=== PATIENT | male | born 1970 | race Caucasian/White ===

== ENCOUNTER 2019-03-07 20:29 | Emergency (ER) | payer SELFPAY ==
[2019-03-07 20:30] VITALS: BP 158/84; PULSE 70; RESP 16; TEMP 36.5; O2SAT 98; BMI 30.7
--- NOTE | 2019-03-07 20:40 | RAD_ITS ---
STUDY: X-RAY CHEST REASON FOR EXAM: Male, 48 years old. Cough. Shortness of breath TECHNIQUE: Frontal and lateral views of the chest. COMPARISON: None. FINDINGS: The lungs are clear and expanded. There is no demonstrated pleural abnormality. Normal size heart. Normal mediastinum and frances. Normal visualized pulmonary arteries. Normal visualized aortic arch and descending thoracic aorta. Normal visualized thoracic spine. Normal visualized ribs, clavicles, and shoulders. There is no demonstrated abnormality of the visualized soft tissue structures of the upper abdomen. RAD/Chest PA and Lateral IMPRESSION: Normal x-ray examination of the chest. Electronically Signed: Emil Peter MD at 20:58 EDT , Service support ,
--- NOTE | 2019-03-07 21:07 | ED.VISSUMM ---
- ER Visit Summary Date of Service: 03/07/19 Chief Complaint: Cough History of Present Illness: The patient is a 48 M with no primary care physician. Reports his cough began 5 days ago. Is productive of clear sputum without blood. He said chills, but no fever. He has nasal congestion. No sore throat. No shortness of breath or chest pain. Reports that his headache is 4-10 severity. He does have a history of similar headaches. Physical Examination: Vitals: Stable. Afebrile. General: Well-nourished and well-developed. Head: Normocephalic atraumatic. Neck: Supple, no lymphadenopathy. No JVD. Nontender. Cardiovascular: Regular rate and rhythm. No murmurs. Respiratory: No respiratory distress. Clear to auscultation bilaterally. Abdominal: Soft, nontender, nondistended, normal bowel sounds. No guarding, rebound, or peritoneal signs. Back: Nontender. Extremities: Nontender, no edema. Skin: Normal color, no rash. Neurologic: Alert and oriented ?3. Cranial nerves II through XII are intact. Normal strength and sensation. Psych: Normal affect. Test Results: Chest x-ray is normal Emergency Department Course and Treatment: Patient is resting comfortably. Treatment Plan: Patient be discharged symptomatic care. Instructed to push fluids. Use Tylenol and/or ibuprofen for pain. Follow-up Dr. Conrad Lemons iii in 1 week if not improving. Disposition: To home in improved and stable condition. Impression: 1. URI. This note was generated with [employer] dictation software. It may contain incorrect words, spelling, and punctuation that were not noted in review of the chart prior to signing ED Disposition - Plan for ED Patient: Disposition: Home or Assisted Living Instructions: ED Upper Resp Infec No Abx Tx Referrals: Conrad Lemons III, MD [STAFF PHYSICIAN] - 1 Week
[2019-03-07 21:18] VITALS: RESP 16
== END 2019-03-07 21:19 | disposition home or self-care (01) ==
PROVIDERS: Emergency Provider Emergency Medicine
DX: J06.9 Acute upper respiratory infection, unspecified (principal)
CPT/HCPCS: 71046; 99282

== ENCOUNTER 2020-01-29 07:07 | Emergency (ER) | payer SELFPAY ==
[2020-01-29 07:08] VITALS: BP 202/108; PULSE 108; RESP 18; TEMP 36.9; O2SAT 99; BMI 29.6
--- NOTE | 2020-01-29 07:23 | RAD_ITS ---
STUDY: X-RAY CHEST REASON FOR EXAM: Male, 49 years old. PRODUCTIVE COUGH X 2 WEEKS TECHNIQUE: PA and lateral views of the chest. COMPARISON: Comparison is made with prior examination dated March 07, 2019. FINDINGS: EKG electrodes are seen. The lungs are clear and expanded. There is no demonstrated pleural abnormality. Normal size heart. Normal mediastinum and frances. Normal visualized pulmonary arteries. Normal visualized aortic arch and descending thoracic aorta. There are mild degenerative changes of the visualized thoracic spine. Normal visualized ribs, clavicles, and shoulders. There is no demonstrated abnormality of the visualized soft tissue structures of the upper abdomen. RAD/Chest PA and Lateral IMPRESSION: Normal x-ray examination of the chest. Electronically Signed: González Duenas, at 8:17 EDT , Service support ,
--- NOTE | 2020-01-29 07:23 | EKG12_ITS ---
Test Reason : HTN Blood Pressure : / mmHG Vent. Rate : 081 BPM Atrial Rate : 081 BPM P-R Int : 138 ms QRS Dur : 084 ms QT Int : 376 ms P-R-T Axes : 052 010 038 degrees QTc Int : 436 ms Normal sinus rhythm Normal ECG Confirmed by ROS HYATT MD ([id number]), telegraph editor JOSE F RODRIGUEZ ([id number]) on 02/01/2020 9:05:40 AM Referred By: GAVINO Confirmed By:ROS HYATT MD
--- NOTE | 2020-01-29 07:24 | ED.VIS.GEN ---
History of Present Illness Chief Complaint: Cough Informant: Patient, Significant Other Onset: Weeks - Onset of respiratory symptoms 2 weeks ago Context: Sudden Onset Timing: Continuous Quality: Cough and respiratory symptoms Location: Respiratory Current Severity: Mild Maximum Severity: Mild Worsened by: Nothing Relieved by: Nothing Associated Symptoms: No other symptoms Narrative: Patient is a 49-year-old male who is a non-smoker and has not seen a physician in 19 years presents with cough productive of clear sputum. Significant other states that he had similar presentation many years ago and was diagnosed with pneumonia. He denies fever, chills night sweats. He denies rhinorrhea, congestion postnasal drainage. He denies ear pain, decreased hearing or drainage from his ears. He denies sore throat. He denies pleuritic chest pain. He denies dyspnea. He denies dyspnea on exertion. He denies urinary symptoms. Apparently, when he has had his blood pressure checked in the past he has been told it is elevated. He denies pedal edema. He denies orthopnea or PND. Prior similar symptoms: Yes Recent Illness/Hospitalization: No - Past Medical History (1) No significant past medical history Status: Acute Past Medical History - Allergies and Home Meds Allergies/Adverse Reactions: Allergies acetaminophen [From Vicodin] Allergy (Verified 03/07/19 20:31) ANGER hydrocodone [From Vicodin] Allergy (Verified 03/07/19 20:31) ANGER Primary Care Physician: Care Physician,No Primary [Primary Care Provider] - Prior records reviewed: No Past Medical History: None Surgical History: no surgical history Lives: Spouse/ Significant Other Smoking Status: Never smoker Alcohol: None Drugs: None Review of Systems General: Denies: Chills, Fever, Malaise, Sweats ENT: Denies: Bilateral ear pain, Rhinorrhea, Sore throat Cardiovascular: Denies: Chest pain, Palpitations, Heart racing Respiratory: Reports: Cough, Sputum. Denies: Dyspnea, Dyspnea on exertion, Orthopnea, Paroxysmal nocturnal dyspnea Gastrointestinal: Denies: Abdominal pain, Nausea, Vomiting, Diarrhea, Melena, Hematochezia Musculoskeletal: Denies: Myalgias, Arthralgias, Neck pain, Back pain, Swelling, Extremity Pain, -, - Skin: Denies: Rash, Wounds Neurological: Denies: Headache, Weakness, Numbness Hematologic: Denies: Easy bruising, Easy bleeding Allergy: Denies: Uticaria, Swelling of the mouth Physical Exam Vital Signs/Narrative: Vital Signs Temp Pulse Resp BP Pulse Ox 01/29/20 07:08 98.5 F 108 H 18 202/108 H 99 Inital Vital Signs reviewed: Yes General: Well nourished, Well developed, No Acute Distress Head: Normocephalic, Atraumatic Eyes: Perrl, EOMI ENT: Moist mucous membranes, No rhinorrhea Neck: Supple, Nontender Cardiovascular: Regular rhythm, No murmurs, Normal S1, Normal S2, Tachycardia Respiratory: No distress, Chest nontender, - - Adventitial breath sounds right lower lobe posteriorly. Negative for: CTA bilaterally Abdomen: Soft, Nontender, Nondistended, Normal bowel sounds Back: Nontender, Normal Inspection Extremities: Nontender, Edema - 2 mm pitting. Negative for: No edema Skin: Normal color, No rash. Negative for: Cyanosis, Diaphoresis, Jaundice, No Trauma Neurological: Alert, Oriented x3, Cranial nerves II-XII grossly intact, Normal Strength, Normal Sensation Psychological: Normal affect, Normal Mood Diagnostic/Tx/Re-eval Chest X-Ray - ED: 2 View, Read by ED Physician, Normal, Heart, Lungs, Mediastinum, Bony Structures, No Acute Disease, - - 2 view chest x-ray is interpreted by me. It is unchanged when compared to chest x-ray that was obtained March 07, 2019. Impressions Chest X-Ray 01/29/20 07:23 IMPRESSION: Normal x-ray examination of the chest. Electronically Signed: González Duenas, at 8:17 EDT , Service support , 01/29/20 07:23 Chest PA and Lateral [RAD] Stat Laboratory Results 01/29/20 01/29/20 01/29/20 07:30 07:40 07:45 WBC 6.7 RBC 5.11 Hgb 14.3 Hct 44.1 MCV 86.3 MCH 28.0 MCHC 32.4 RDW Std Deviation 39.8 RDW Coeff of Vahe 12.6 Plt Count 329 MPV 9.6 Immature Gran % (Auto) 0.300 Neut % (Auto) 62.9 Lymph % (Auto) 16.6 L [place] % (Auto) 12.1 H Eos % (Auto) 7.2 H Baso % (Auto) 0.9 Absolute Neuts (auto) 4.2 Absolute Lymphs (auto) 1.11 Nucleated RBC % 0 Sodium 139 Potassium 3.5 Chloride 104 Carbon Dioxide 30.0 Anion Gap 5 BUN 12 Creatinine 1.01 Estim Creat Clear Calc 86.53 Est GFR (MDRD) Af Amer 101 Est GFR (MDRD) Non-Af 84 BUN/Creatinine Ratio 11.9 Glucose 101 Calcium 8.9 Urine Color Yellow Urine Clarity Clear Urine pH 7.0 Ur Specific [place] 1.010 Urine Protein Negative Urine Glucose (UA) Normal Urine Ketones Negative Urine Occult Blood 10 H Urine Nitrite Negative Urine Bilirubin Negative Urine Urobilinogen Normal Ur Leukocyte Esterase Negative - EKG Initial EKG Interpretation: Sinus Rhythm - Sinus rhythm with ventricular rate of 81. [place] interval 238 ms. QRS duration 84 ms. QT duration 376 ms. [place] is normal. T waves are slightly peaked. This may represent hyperkalemia. Otherwise the EKG is normal - Medical Decision Making With history of productive cough for 2 weeks will obtain chest x-ray to assess for pneumonia especially since there are abnormal breath sounds on right only. Will obtain lab work to assess for endorgan injury since his blood pressure is significantly elevated at 202/108 and according to significant other he has had elevated blood pressures for some time. Patient's blood pressure readings remain elevated. Will start on lisinopril. He was referred to Dr. Keller since he does not have a primary care physician. Since white count is normal, chest x-ray is normal he has a upper respiratory infection and antibiotics were not prescribed. ED Disposition - Plan for ED Patient: Disposition: Home or Assisted Living Diagnosis: Hypertension, Upper respiratory infection with cough and congestion Instructions: BRONCHITIS, No Antibiotic (Adult), HYPERTENSION, New (Begin Treatment) Prescriptions: Lisinopril [Prinivil] 10 mg PO DAILY #30 tab Prescription Printed Referrals: Care Physician,No Primary [Primary Care Provider] - Sheila Giles MD [STAFF PHYSICIAN] - 1-2 Weeks
[2020-01-29 07:42] LABS: Color, Urine Yellow (Yellow); Glucose, Dipstick Normal (Normal); Ketone-Dipstick Negative (Negative); Leukocyte Esterase-Dipstick Negative /ul (Negative); Nitrite-Dipstick Negative (Negative); Occult Blood-Urine 10 /ul (Negative); Protein-Dipstick Negative (Negative); Urine Bilirubin Dipstick Negative (Negative); Urine Clarity Clear (Clear); Urine Urobilinogen Normal (Normal)
[2020-01-29 07:43] VITALS: BP 209/108; PULSE 88; RESP 20; O2SAT 98
[2020-01-29 08:01] LABS: Absolute Lymphocyte Count 1.11 X10^3/uL (0.83-4.51); Absolute Neutrophil Count 4.2 X10^3/uL (2.0-7.7); Basophil# 0.06 X10^3/uL; Basophil% 0.9 % (0-1); Eosinophil# 0.48 X10^3/uL; Eosinophils% 7.2 % (0-5); Hematocrit 44.1 % (40-54); Hemoglobin 14.3 g/dL (13.0-16.5); Lymphocyte # 1.11 X10^3/ul (4.0); Lymphocyte % 16.6 % (19-41); Mean Corp Hgb Conc 32.4 g/dL (32-36); Mean Corpuscular Volume 86.3 fL (80-94); Mean Platelet Vol. 9.6 fl (6.2-12.0); Monocyte# 0.81 X10^3/uL; Monocyte% 12.1 % (0-10); NRBC Flagged by Analyzer 0 % (0-5); Neutrophil # 4.21 X10^3/uL (2.7-7.7); Neutrophil % 62.9 % (47-70); Platelet Count 329 K/mm3 (150-450); RBC Distribution Width CV 12.6 % (11.6-14.6); RBC Distribution Width SD 39.8 fl (35.1-43.9); Red Blood Count 5.11 M/mm3 (4.6-6.2); White Blood Count 6.7 K/mm3 (4.4-11.0)
[2020-01-29 08:07] LABS: Anion Gap 5 (5-15); BUN 12 mg/dL (7-18); BUN/Creat Ratio 11.9 RATIO (10-20); Calcium,Total 8.9 mg/dL (8.5-10.1); Chloride 104 mmol/L (98-107); Creatinine, Serum 1.01 mg/dL (0.70-1.30); EST Glomerular Filtration Rate 84 mL/min (>60); Est Glom Filt Rate - Afr Amer 101 mL/min (>60); Estimated Creatinine Clearance 86.53 ml/min; Glucose 101 mg/dL (74-106); Potassium 3.5 mmol/L (3.5-5.1); Sodium Level 139 mmol/L (136-145)
[2020-01-29 08:38] VITALS: BP 168/104; PULSE 72; RESP 15; O2SAT 97
== END 2020-01-29 08:38 | disposition home or self-care (01) ==
PROVIDERS: Emergency Provider Emergency Medicine
DX: J06.9 Acute upper respiratory infection, unspecified (principal); I10 Essential (primary) hypertension; Z87.01 Personal history of pneumonia (recurrent)
CPT/HCPCS: 71046; 80048; 81002; 85025; 93005; 99284; A4216

== ENCOUNTER 2021-02-05 10:34 | Emergency (ER) | payer SELFPAY ==
[2021-02-05 10:35] VITALS: BP 180/121; PULSE 67; RESP 14; TEMP 36.8; O2SAT 98; BMI 31.1
[2021-02-05 10:46] VITALS: BP 212/118
--- NOTE | 2021-02-05 10:48 | EKG12_ITS ---
Test Reason : GENERAL ILLNESS Blood Pressure : / mmHG Vent. Rate : 065 BPM Atrial Rate : 065 BPM P-R Int : 148 ms QRS Dur : 070 ms QT Int : 440 ms P-R-T Axes : 054 012 043 degrees QTc Int : 457 ms Normal sinus rhythm Septal infarct , age undetermined Abnormal ECG Confirmed by PRITI JUSTIN, BETHANIE ([id number]), editor book DENNISE CARDENAS ([id number]) on 02/07/2021 9:27:17 AM Referred By: ELIZABETH/JAMES Confirmed By:JUAN MANUEL MARCOS MD
[2021-02-05] MEDS: 0.9% Normal Saline 1,000 ML 1000 ML IV (10:56)
[2021-02-05 11:03] LABS: Absolute Lymphocyte Count 1.96 X10^3/uL (0.83-4.51); Absolute Neutrophil Count 5.5 X10^3/uL (2.0-7.7); Basophil# 0.06 X10^3/uL; Basophil% 0.7 % (0-1); Eosinophil# 0.18 X10^3/uL; Eosinophils% 2.2 % (0-5); Hematocrit 46.5 % (40-54); Hemoglobin 15.6 g/dL (13.0-16.5); Lymphocyte # 1.96 X10^3/ul (4.0); Lymphocyte % 23.9 % (19-41); Mean Corp Hgb Conc 33.5 g/dL (32-36); Mean Corpuscular Hgb 29.5 pg (27.0-32.0); Mean Corpuscular Volume 88.1 fL (80-94); Mean Platelet Vol. 9.4 fl (6.2-12.0); Monocyte# 0.52 X10^3/uL; Monocyte% 6.3 % (0-10); NRBC Flagged by Analyzer 0 % (0-5); Neutrophil # 5.48 X10^3/uL (2.7-7.7); Neutrophil % 66.8 % (47-70); Platelet Count 338 K/mm3 (150-450); RBC Distribution Width CV 12.7 % (11.6-14.6); RBC Distribution Width SD 40.6 fl (35.1-43.9); Red Blood Count 5.28 M/mm3 (4.6-6.2); White Blood Count 8.2 K/mm3 (4.4-11.0)
--- NOTE | 2021-02-05 11:11 | ED.DCSUM_ITS ---
- ER Visit Summary Date of Service: 02/05/21 Chief Complaint: Feel drained History of Present Illness: The patient is a 50 M with no primary care physician. He reports that his been working 10 to 12-hour days for approximately 3 months. He works making wire harnesses. States that today he just feels drained. Patient denies any chest pain or change in dyspnea exertion in the past month. Review of systems: General: No fever, chills, cold sweats. Cardiovascular: No chest pain, palpitations. Respiratory: No cough, shortness of breath, dyspnea on exertion. Gastrointestinal: No abdominal pain, nausea, vomiting, diarrhea, melena, or hematochezia. Genitourinary: No dysuria, frequency, hematuria. Skin: No rash. Neuro: No headache, numbness, weakness. Physical Examination: Vitals: 98.3, 2 10/15/2018, 67, 14, 98% on room air which is not hypoxic. General: Well-nourished and well-developed. Head: Normocephalic atraumatic. Neck: Supple, no lymphadenopathy. No JVD. Nontender. Cardiovascular: Regular rate and rhythm. No murmurs. Respiratory: No respiratory distress. Clear to auscultation bilaterally. Abdominal: Soft, nontender, nondistended, normal bowel sounds. No guarding, rebound, or peritoneal signs. Back: Nontender. Extremities: Nontender, no edema. Skin: Normal color, no rash. Neurologic: Alert and oriented ?3. Cranial nerves II through XII are intact. Normal strength and sensation. Psych: Normal affect. Test Results: EKG is sinus at [address] changes. Is unchanged from January 282019. CBC is normal. Chem-7 is normal. Troponin is negative. Chest x-ray shows no acute disease. Emergency Department Course and Treatment: Patient's repeat blood pressure is 219/113. His EKG does not show findings consistent with LVH which would suggest chronic hypertension. He was given 20 mg of lisinopril p.o. Treatment Plan: Patient will be discharged on 10 mg of lisinopril a day. [facility]. Return to the emergency department for any worsening symptoms. Disposition: To home in improved and stable condition. Impression: 1. Hypertension. This note was generated with [employer] dictation software. It may contain incorrect words, spelling, and punctuation that were not noted in review of the chart prior to signing ED Disposition - Plan for ED Patient: Instructions: ED Hypertension, New (Begin Treatment) Prescriptions: Lisinopril 10 mg PO DAILY #30 tablet Referrals: Dawn Lomax [NON-STAFF] - 1 Week
[2021-02-05 11:18] LABS: Anion Gap 1 (5-15); BUN 11 mg/dL (7-18); BUN/Creat Ratio 11.2 RATIO (10-20); Calcium,Total 8.6 mg/dL (8.5-10.1); Chloride 104 mmol/L (98-107); Creatinine, Serum 0.98 mg/dL (0.70-1.30); EST Glomerular Filtration Rate 86 mL/min (>60); Est Glom Filt Rate - Afr Amer 104 mL/min (>60); Estimated Creatinine Clearance 85.25 ml/min; Glucose 101 mg/dL (74-106); Potassium 4.4 mmol/L (3.5-5.1); Sodium Level 136 mmol/L (136-145)
[2021-02-05] MEDS: Lisinopril 20 MG Tablet PO (11:34)
--- NOTE | 2021-02-05 11:35 | RAD_ITS ---
STUDY: X-RAY CHEST REASON FOR EXAM: Male, 50 years old. Chest pain TECHNIQUE: Single AP portable view of the chest. COMPARISON: Comparison is made with prior study dated 01/29/2020. FINDINGS: EKG electrodes are seen. The lungs are clear and expanded. There is no demonstrated pleural abnormality. Normal size heart. Normal mediastinum and frances. Normal visualized pulmonary arteries. Normal visualized aortic arch and descending thoracic aorta. There are degenerative changes of the visualized thoracic spine. Normal visualized ribs, clavicles, and shoulders. There is no demonstrated abnormality of the visualized soft tissue structures of the upper abdomen. RAD/Chest 1 View (Portable) IMPRESSION: No acute abnormality is seen. Electronically Signed: González Duenas MD at 12:17 EDT , Service support ,
[2021-02-05 11:58] VITALS: BP 200/103; PULSE 79; RESP 16; O2SAT 98
== END 2021-02-05 12:10 | disposition home or self-care (01) ==
LOC: ED 12:02
PROVIDERS: Emergency Provider Emergency Medicine
DX: I10 Essential (primary) hypertension (principal)
CPT/HCPCS: 71045; 80048; 84484; 85025; 93005; 96360; 99285; J7030; A4216

== ENCOUNTER 2021-03-06 05:36 | Emergency (ER) | payer SELFPAY ==
[2021-03-06 05:37] VITALS: BP 163/90; PULSE 61; RESP 16; TEMP 35.9; O2SAT 95; BMI 30.4
--- NOTE | 2021-03-06 05:46 | EKG12_ITS ---
Test Reason : CHEST PAIN Blood Pressure : / mmHG Vent. Rate : 059 BPM Atrial Rate : 059 BPM P-R Int : 148 ms QRS Dur : 074 ms QT Int : 430 ms P-R-T Axes : 063 012 029 degrees QTc Int : 425 ms Sinus bradycardia Otherwise normal ECG Confirmed by PRITI JUSTIN, BETHANIE ([id number]), editor dictionary DENNISE CARDENAS ([id number]) on 03/07/2021 8:20:33 AM Referred By: ADA Confirmed By:JUAN MANUEL MARCOS MD
--- NOTE | 2021-03-06 05:46 | RAD_ITS ---
STUDY: X-RAY CHEST REASON FOR EXAM: Male, 50 years old. chest pain TECHNIQUE: Single AP portable view of the chest. COMPARISON: 02/05/2021. FINDINGS: The patient is in a kyphotic position. There are no confluent pulmonary infiltrates. There is no demonstrated pleural abnormality. Normal size heart. Normal mediastinum and frances. Normal visualized aortic arch and descending thoracic aorta. There are no demonstrated acute fractures or destructive bone lesions. There is no demonstrated abnormality of the visualized soft tissue structures of the upper abdomen. RAD/Chest 1 View (Portable) IMPRESSION: No evidence for acute cardiopulmonary pathology. Electronically Signed: Jose Guadalupe Bustos MD at 6:27 EDT , Service support ,
--- NOTE | 2021-03-06 05:46 | ED.DCSUM_ITS ---
History of Present Illness Chief Complaint: Chest Pain Informant: Patient Narrative: 50-year-old male with past medical history of hypertension presents with concern for chest pain. States it began approximately 2 hours ago. States that he was awakened he started feeling sharp pain across his chest. States he has been lifting heavy things moving things around over the past few days but wanted to be cautious. Was started on blood pressure medication 3 days ago. Denies any shortness of breath, nausea, vomiting, diaphoresis. Past Medical History - Allergies and Home Meds Allergies/Adverse Reactions: Allergies acetaminophen [From Vicodin] Allergy (Verified 02/05/21 10:39) ANGER hydrocodone [From Vicodin] Allergy (Verified 02/05/21 10:39) ANGER Primary Care Physician: Care Physician,No Primary [NON-STAFF] - Prior records reviewed: Yes Past Medical History: - - HTN Surgical History: no surgical history Lives: Spouse/ Significant Other Smoking Status: Never smoker Alcohol: None Drugs: None Review of Systems General: Denies: Chills, Fever, Sweats Eyes: Denies: Visual changes - bilaterally, Diplopia ENT: Denies: Rhinorrhea, Sore throat Cardiovascular: Reports: Chest pain. Denies: Palpitations Respiratory: Denies: Dyspnea, Cough, Dyspnea on exertion Gastrointestinal: Denies: Abdominal pain, Nausea, Vomiting, Diarrhea, Melena, Hematochezia Genitourinary: Denies: Dysuria, Hematuria, Frequency Musculoskeletal: Denies: Back pain, Extremity Pain Skin: Denies: Rash, Wounds Neurological: Denies: Headache, Weakness, Numbness Physical Exam Vital Signs/Narrative: Vital Signs Temp Pulse Resp BP Pulse Ox 03/06/21 05:37 96.6 F L 61 16 163/90 H 95 Inital Vital Signs reviewed: Yes General: Well nourished, Well developed, No Acute Distress Head: Normocephalic, Atraumatic Eyes: Perrl, EOMI ENT: Moist mucous membranes, No rhinorrhea Neck: Supple, Nontender Cardiovascular: Regular rate, Regular rhythm, No murmurs Respiratory: No distress, CTA bilaterally, Chest nontender Abdomen: Soft, Nontender, Nondistended, Normal bowel sounds Back: Nontender, Normal Inspection Extremities: Nontender, No edema Skin: Normal color, No rash Neurological: Alert, Oriented x3, Cranial nerves II-XII grossly intact, Normal Strength, Normal Sensation Psychological: Normal affect, Normal Mood Diagnostic/Tx/Re-eval Chest X-Ray - ED: 1 View, Read by ED Physician, Read by Radiologist, Normal Clinical Impression(s) from Imaging Studies Chest X-Ray 03/06/21 05:46 IMPRESSION: No evidence for acute cardiopulmonary pathology. Electronically Signed: Jose Guadalupe Bustos MD at 6:27 EDT , Service support , Laboratory Data 03/06/21 03/06/21 06:00 06:00 WBC 11.4 H RBC 4.90 Hgb 14.3 Hct 42.9 MCV 87.6 MCH 29.2 MCHC 33.3 RDW Std Deviation 39.8 RDW Coeff of Vahe 12.4 Plt Count 325 MPV 9.7 Immature Gran % (Auto) 0.300 Neut % (Auto) 70.5 H Lymph % (Auto) 17.6 L [place] % (Auto) 9.1 Eos % (Auto) 1.9 Baso % (Auto) 0.6 Absolute Neuts (auto) 8.0 H Absolute Lymphs (auto) 2.00 Nucleated RBC % 0 Sodium 137 Potassium 3.8 Chloride 105 Carbon Dioxide 30.0 Anion Gap 2 L BUN 17 Creatinine 1.10 Estim Creat Clear Calc 78.59 Est GFR (MDRD) Af Amer 91 Est GFR (MDRD) Non-Af 75 BUN/Creatinine Ratio 15.5 Glucose 111 H Calcium 8.5 Troponin I < 0.015 - Rhythm Strip Rhythm Strip: Sinus Bradycardia Rate: 59 - EKG Initial EKG Interpretation: Sinus Bradycardia - Sinus bradycardia 59 bpm. [place] interval of 148 ms. QTC of 425 ms. No evidence of ST elevation or depression at this time. Unchanged from previous on 02/05/21. - Medical Decision Making Patient appears well and nontoxic. Vital signs within normal limits. EKG shows no acute ischemia. Troponin negative. Other lab work within normal limits. Chest x-ray shows no acute process. Interpreted by myself. Radiologist concurs. Patient will receive delta troponin be discharged home to follow-up with his primary care provider. Impression: 1. Chest pain ED Disposition - Plan for ED Patient: Disposition: Home or Assisted Living Instructions: ED Chest Pain, Uncertain Cause Referrals: Lobo Guidry DO [NON CLINICAL AFFILIATE] - 2 Days
[2021-03-06 06:05] VITALS: O2SAT 96
[2021-03-06 06:07] LABS: Basophil# 0.07 X10^3/uL; Basophil% 0.6 % (0-1); Eosinophil# 0.22 X10^3/uL; Eosinophils% 1.9 % (0-5); Hematocrit 42.9 % (40-54); Hemoglobin 14.3 g/dL (13.0-16.5); Lymphocyte % 17.6 % (19-41); Mean Corp Hgb Conc 33.3 g/dL (32-36); Mean Corpuscular Hgb 29.2 pg (27.0-32.0); Mean Corpuscular Volume 87.6 fL (80-94); Mean Platelet Vol. 9.7 fl (6.2-12.0); Monocyte# 1.03 X10^3/uL; Monocyte% 9.1 % (0-10); NRBC Flagged by Analyzer 0 % (0-5); Neutrophil # 8.01 X10^3/uL (2.7-7.7); Neutrophil % 70.5 % (47-70); Platelet Count 325 K/mm3 (150-450); RBC Distribution Width CV 12.4 % (11.6-14.6); RBC Distribution Width SD 39.8 fl (35.1-43.9); White Blood Count 11.4 K/mm3 (4.4-11.0)
[2021-03-06 06:24] LABS: Anion Gap 2 (5-15); BUN 17 mg/dL (7-18); BUN/Creat Ratio 15.5 RATIO (10-20); Calcium,Total 8.5 mg/dL (8.5-10.1); Chloride 105 mmol/L (98-107); EST Glomerular Filtration Rate 75 mL/min (>60); Est Glom Filt Rate - Afr Amer 91 mL/min (>60); Estimated Creatinine Clearance 78.59 ml/min; Glucose 111 mg/dL (74-106); Potassium 3.8 mmol/L (3.5-5.1); Sodium Level 137 mmol/L (136-145)
[2021-03-06 07:21] VITALS: BP 133/82; PULSE 51; RESP 13; O2SAT 97
[2021-03-06 09:56] VITALS: BP 124/78; PULSE 56; RESP 16; O2SAT 98
== END 2021-03-06 09:57 | disposition home or self-care (01) ==
PROVIDERS: Emergency Medicine; Emergency Provider Emergency Medicine
DX: R07.9 Chest pain, unspecified (principal)
CPT/HCPCS: 71045; 80048; 84484; 85025; 93005; 99284; A4216

== ENCOUNTER 2021-03-11 23:21 | Emergency (ER) | payer SELFPAY ==
[2021-03-11 23:23] VITALS: BP 158/85; PULSE 70; RESP 15; TEMP 36.8; O2SAT 99; BMI 29.6
--- NOTE | 2021-03-11 23:55 | EDS_ITS ---
HPI History of Present Illness Chief Complaint: Bite Narrative Narrative: Patient has 3 punctate areas on the left calf which he is concerned are tick bites. He did not see a tick. He states that these are not painful but itchy. He denies any systemic signs or symptoms. He states that all of his friends kept telling him that were tick bites. [facility] Home Medications NK 03/06/21 [History Last Taken Unknown] Allergy/AdvReac Type Severity Reaction Status Date / Time hydrocodone [From Vicodin] Allergy ANGER Verified 03/11/21 23:22 Social History Smoking Status: Never smoker ROS ROS ED Constitutional Constitutional ED: Denies chills, fever(s) or sweats Eyes Eyes: Denies blurry vision or change in vision ENT ENT ED: Denies ear pain, rhinorrhea or sore throat Cardiovascular Cardiovascular: Denies chest pain, palpitations or racing heartbeat Respiratory/Chest Respiratory/Chest: Denies cough, dyspnea or sputum Gastrointestinal Gastrointestinal: Denies abdominal pain, constipation, diarrhea or vomiting Genitourinary Genitourinary ED: Denies dysuria, hematuria or urinary frequency Musculoskeletal Musculoskeletal: Denies arthralgias, myalgias or neck pain Integumentary Reports Abrasions Neurologic Neurologic: Denies headache(s), paresthesias or weakness Psychiatric Psychiatric: Denies anxiety, depression, suicidal ideation or suicidal thoughts Endocrine Endocrinology: Denies polydipsia or polyuria EXAM Physical Exam Const Vital Signs: 03/11/21 23:23 Temperature 98.2 F Temperature Source Temporal Pulse Rate 70 Respiratory Rate 15 Blood Pressure 158/85 H Blood Pressure Mean 109 Pulse Ox 99 Oxygen Delivery Method Room Air General Appearance ED: Negative for pallor HEENT Reports normocephalic, head/scalp atraumatic and moist mucous membranes Eyes PERRL and EOMs intact bilaterally Neck no lymphadenopathy and supple Chest Wall inspection of chest normal and palpation of chest normal Resp normal respiratory effort and clear to auscultation bilaterally Auscultation: Negative for rales, rhonchi or wheezes Cardio regular rate and regular rhythm GI normal to inspection, nondistended, normoactive bowel sounds and non-distended Auscultation: normoactive bowel sounds Palpation: soft Narrative: Deferred Back/Spine no CVA tenderness General Back: Negative for CVA tenderness Cervical Spine: Negative for cervical spine tenderness Extremity normal to inspection General Extremety ED: Yes edema and tenderness General Extremity: edema Neuro oriented x3 and CN's II-XII intact bilaterally Sensorium / Orientation: alert Motor Exam: strength 5/5 throughout Psych mental status grossly normal Attitude: No agitated Skin Skin Narrative: 3 punctate areas on left calf which are nontender to palpation. There is no vesicles. There is no target lesions. General Skin Exam: Negative for jaundice or pallor MDM MDM MDM Narrative Medical decision making narrative: Patient has 3 punctate areas on the left calf which he was concerned was tick bite due to everybody telling him he has a tick bite. Patient states that they are itchy but not painful. They do not appear to be obvious tick bites. He did not see a tick. He feels otherwise well. I do not believe he needs antibiotics. Patient counseled to keep the wounds clean and dry. He is given return precautions. Discharge Plan Triage Chief Complaint: Bite ED Provider: Joe Polo Dx/Rx/DC Orders Clinical Impression: Abrasion Instructions: ED Abrasion Prescriptions: No Action NK RF: 0 Primary Care Provider: Dawn Rodriguez Referrals: [facility] Dawn Torres [Primary Care Provider] - As Needed
[2021-03-12 00:04] VITALS: BP 158/85; PULSE 70; RESP 15; TEMP 36.8; O2SAT 99
== END 2021-03-12 00:14 | disposition home or self-care (01) ==
LOC: ED 03-12 00:13
PROVIDERS: Emergency Provider Student in an Organized Health Care Education/Training Program
DX: S80.812A Abrasion, left lower leg, initial encounter (principal); X58.XXXA Exposure to other specified factors, initial encounter; Y93.9 Activity, unspecified; Y92.9 Unspecified place or not applicable; Y99.9 Unspecified external cause status
CPT/HCPCS: 99282

== ENCOUNTER 2021-03-19 11:54 | Emergency (ER) | payer SELFPAY ==
[2021-03-19 11:55] VITALS: BP 158/84; PULSE 71; RESP 16; TEMP 36.1; O2SAT 97; BMI 29.2
--- NOTE | 2021-03-19 12:38 | EDS_ITS ---
HPI History of Present Illness Chief Complaint: Back Narrative Narrative: Patient presents with gradual onset of back pain over the past 3 days he does not know an actual injury. He has no radiation of the pain to his legs he has no bowel or bladder compromise. He has no saddle anesthesia no perirectal decreased sensation. He has no loss in strength. He has no suprapubic pain or urinary retention symptoms. [facility] Medical History (Updated 03/19/21 @ 12:[address] Alfred Claros MD) Back pain Hypertension Home Medications hydrocodone-acetaminophen 1 tab PO QHS PRN 3 Days #7 tab 03/19/21 [Rx Last Taken Unknown] naproxen [Naprosyn] 500 mg PO BID #20 tab 03/19/21 [Rx Last Taken Unknown] tizanidine 4 mg PO QHS #10 tab 03/19/21 [Rx Last Taken Unknown] Allergy/AdvReac Type Severity Reaction Status Date / Time hydrocodone [From Vicodin] Allergy ANGER Verified 03/19/21 11:55 Social History Smoking Status: Former smoker ROS ROS ED ROS Narrative Past medical history: Reviewed Medications: Reviewed Social history: Noncontributory Review of systems: All systems negative except as indicated General: No fever Eyes: No visual changes ENT: No upper airway congestion, normal voice Neck: No neck pain Cardiovascular: No chest pain Respiratory: No shortness of breath or cough Gastrointestinal: No abdominal pain, nausea vomiting or diarrhea. No suprapubic pain. Genitourinary: No dysuria. No incontinence or retention symptoms Musculoskeletal: Denies myalgias no difficulty with ambulation Back: Back pain as in HPI Skin: No rash Neurological: No memory loss, confusion or any focal weakness Psych: No recent behavioral changes Hematologic: No easy bleeding or easy bruising EXAM Physical Exam Narrative Exam Narrative: Vitals reviewed General: Patient appears in some discomfort HEENT: Moist mucous membranes Neck: Nontender Cardiovascular normal heart rate Respiratory: No respiratory difficulty speaking in full sentences Abdomen: Soft and nontender, there is no suprapubic mass or pain Back: There is some tenderness over the lumbar region, pain is spinal and paraspinal both. Extremities: Moves all extremities without joint pain or signs of trauma Neurological: There is normal plantar flexion and dorsiflexion of both feet and great toes. Patellar and Achilles reflexes are normal. Normal strength and sensation. Negative straight leg test. Skin: No rash Psychiatric: Slightly anxious. Const Vital Signs: 03/19/21 11:55 Temperature 96.9 F L Temperature Source Temporal Pulse Rate 71 Respiratory Rate 16 Blood Pressure 158/84 H Blood Pressure Mean 108 Pulse Ox 97 Oxygen Delivery Method Room Air MDM MDM Radiography Diagnostic Testing: Patient has an unremarkable exam there are no signs or symptoms of cauda equina. I will discharge him with symptomatic treatment. Discharge Plan Triage Chief Complaint: Back ED Provider: Alfred Claros Dx/Rx/DC Orders Clinical Impression: Back pain Instructions: ED Back Pain (Acute or Chronic) Prescriptions: New hydrocodone-acetaminophen 5-325 mg tablet 1 tab PO QHS PRN (Reason: pain) 3 Days Qty: 7 RF: 0 tizanidine 4 mg tablet 4 mg PO QHS Qty: 10 RF: 0 naproxen [Naprosyn] 500 mg tablet 500 mg PO BID Qty: 20 RF: 0 Primary Care Provider: Dawn Rodriguez Referrals: Dawn Rodriguez [Primary Care Provider] - 2 Days
[2021-03-19] MEDS: Ketorolac 30 MG/ML Syringe IM (12:50)
[2021-03-19] MEDS: Orphenadrine 60 MG/2 ML Ampul IM (12:51)
== END 2021-03-19 13:06 | disposition home or self-care (01) ==
PROVIDERS: Emergency Provider Emergency Medicine
DX: M54.5 Low back pain (principal); Z87.891 Personal history of nicotine dependence
CPT/HCPCS: 96372; 99283

== ENCOUNTER 2022-12-16 11:06 | Emergency (ER) | payer SELFPAY ==
[2022-12-16 11:07] VITALS: BP 188/112; PULSE 107; RESP 18; TEMP 35.9; O2SAT 95; BMI 33.6
--- NOTE | 2022-12-16 11:25 | RAD_ITS ---
HISTORY: cough. TECHNIQUE: XR Chest 1 View. COMPARISON: 03/06/2021. FINDINGS: CARDIOMEDIASTINAL BORDERS: Cardiac silhouette within normal limits in size. Mediastinal contour unremarkable. LUNGS: Mild right basilar opacity medially. PLEURA: No pleural effusion or pneumothorax seen. OSSEOUS STRUCTURES: Unremarkable. RAD/Chest 1 View (Portable) IMPRESSION: Mild right basilar atelectasis or pneumonia. Electronically Signed: Aditi Bowie MD at 12:09 EST ,
--- NOTE | 2022-12-16 11:26 | EX.ED.DYSGE1 ---
HPI History of Present Illness Chief Complaint: Cold Sx Detail of Chief Complaint: Cough Informant: patient Narrative Narrative: Patient presents with a cough that started 5 days ago. Patient states he went to urgent care and had a negative COVID and flu were negative chest x-ray. Patient presents with continued cough. Cough with mostly clear phlegm. Patient Nuys fever chills or sweats. He denies dyspnea. He denies recent travel or surgery. Patient states that people told him he needed an antibiotic. Patient denies sick contacts. [facility] Medical History (Updated 12/16/22 @ 12:[address] Kayleigh Mcguire DO) Back pain Hypertension Home Medications hydrocodone-acetaminophen 5-325mg 5mg-325mg 1 tab PO QHS PRN pain 3 days #7 tabs 03/19/21 [Rx Last Taken Unknown] hydrocodone-acetaminophen 5-325mg 5mg-325mg 1 tab PO TID PRN pain 3 days #7 tabs 03/19/21 [Rx Last Taken Unknown] naproxen 500 mg tablet (Naprosyn) 500 mg PO BID #20 tabs 03/19/21 [Rx Last Taken Unknown] tizanidine 4 mg tablet 4 mg PO QHS #10 tabs 03/19/21 [Rx Last Taken Unknown] doxycycline monohydrate 100 mg capsule 100 mg PO BID #20 CAPSULES 12/16/22 [Rx Last Taken Unknown] prednisone 20 mg tablet 20 mg PO BID #10 tabs 12/16/22 [Rx Last Taken Unknown] Allergy/AdvReac Type Severity Reaction Status Date / Time hydrocodone [From Vicodin] Allergy ANGER Verified 03/19/21 11:55 Social History Smoking Status: Former smoker ROS ROS ED Review of Systems ROS Unobtainable: other Constitutional Constitutional ED: Reports lethargy; Denies chills, fever(s), sweats or weight loss Eyes Eyes: Denies blurry vision, change in vision or diplopia ENT ENT ED: Denies rhinorrhea or sore throat Cardiovascular Cardiovascular: Denies chest pain, orthopnea or racing heartbeat Respiratory/Chest Respiratory/Chest: Reports cough; Denies dyspnea, dyspnea on exertion, orthopnea or sputum Gastrointestinal Gastrointestinal: Denies abdominal pain, diarrhea, nausea or vomiting Genitourinary Genitourinary ED: Denies dysuria, hematuria or urinary frequency Musculoskeletal Musculoskeletal: Denies arthralgias, back pain, myalgias or neck pain Integumentary Denies abscess, Abrasions or rash Neurologic Neurologic: Denies headache(s) or weakness Psychiatric Psychiatric: Denies anxiety, depression or suicidal thoughts Endocrine Endocrinology: Denies polydipsia, polyphagia or polyuria Hematologic/Lymphatic Hematologic/Lymphatic: Denies easy bleeding, easy bruising or lymphadenopathy Allergic/Immunologic Allergic/Immunologic ED: Denies mouth swelling, tongue swelling or urticaria EXAM Physical Exam Const Vital Signs: 12/16/22 11:07 12/16/22 11:27 Temperature 96.7 F L Temperature Source Temporal Pulse Rate 107 H Respiratory Rate 18 Respiratory Effort Normal Non-Labored Respiratory Depth Normal Respiratory Pattern Normal Blood Pressure 188/112 H Blood Pressure Mean 137 Pulse Ox 95 Oxygen Delivery Method Room Air Positive well nourished and well developed General Appearance ED: well developed and NAD HEENT Reports TM's clear and moist mucous membranes normocephalic and atraumatic; Negative for trauma or tenderness Tympanic Membrane ED: Yes TM's clear Eyes PERRL and EOMs intact bilaterally General Eye ED: Negative for pale conjunctiva or scleral icterus Neck no lymphadenopathy, supple and no JVD General: Negative for tenderness Chest Wall inspection of chest normal and palpation of chest normal Chest: Negative for tenderness Resp normal respiratory effort and clear to auscultation bilaterally Resp Narrative: Good aeration bilaterally. No conversational dyspnea. No excess or muscle use. Patient has some faint expiratory wheezes noted. Effort and Inspection: Negative for respiratory distress or pain with movement Auscultation: wheezes; Negative for rhonchi or diminished lung sounds Cardio regular rate, regular rhythm, S1 normal heart sound, S2 normal heart sound and no murmurs Peripheral Pulses: pulses 2+ throughout GI normal to inspection, nondistended, normoactive bowel sounds, soft to palpation, non-tender, non-distended and no masses Back/Spine no CVA tenderness and no thoracic nor lumbar tenderness Extremity normal to inspection General Extremety ED: Negative for edema General Extremity: Negative for edema Neuro oriented x3, CN's II-XII intact bilaterally, no sensory deficits noted and gait normal Sensorium / Orientation: awake, alert, oriented to person, oriented to place and oriented to time Motor Exam: strength 5/5 throughout and strength abnormal Psych mental status grossly normal Skin no rashes or lesions noted and no wounds MDM MDM MDM Narrative Medical decision making narrative: Patient had a rapid COVID and rapid flu that were both negative. Patient had a chest x-ray that radiology felt there might be atelectasis right lower lobe versus infiltrate or pneumonia. Patient was given a DuoNeb aerosol and prednisone. He did feel improved. He will be dispensed an albuterol MDI. I started him on doxycycline. Patient referred to primary care physician for follow-up within next 3 to 5 days. He is advised to return if increasing shortness of breath or condition should worsen anyway. Lab Data Attestation: I reviewed the patient's lab results. Radiography Chest X-Ray - ED: 1 View Diagnostic Testing: Clinical Impression(s) from Imaging Studies Chest X-Ray 12/16/22 11:25 IMPRESSION: Mild right basilar atelectasis or pneumonia. Electronically Signed: Aditi Bowie MD at 12:09 EST Reading Location ID and State: [facility] / [place] Tel , Service support , 1 view chest x-ray obtained interpreted by myself no acute disease process. Radiology felt there was some increased markings in the right base which may be atelectasis versus pneumonia. Discharge Plan Triage Chief Complaint: Cold Sx ED Provider: Kayleigh Mcguire Dx/Rx/DC Orders Clinical Impression: Pneumonia Instructions: ED Pneumonia (Adult) Prescriptions: New doxycycline monohydrate 100 mg capsule 100 mg PO BID Qty: 20 0RF prednisone 20 mg tablet 20 mg PO BID Qty: 10 0RF No Action hydrocodone-acetaminophen 5-325 mg tablet 1 tab PO QHS PRN (Reason: pain) 3 Days Qty: 7 0RF tizanidine 4 mg tablet 4 mg PO QHS Qty: 10 0RF naproxen [Naprosyn] 500 mg tablet 500 mg PO BID Qty: 20 0RF hydrocodone-acetaminophen 5-325 mg tablet 1 tab PO TID PRN (Reason: pain) 3 Days Qty: 7 0RF Primary Care Provider: [facility] Dawn Torres Referrals: [facility] Dawn Torres [Primary Care Provider] - 3-5 Days Disposition Disposition: Home, Self Care
[2022-12-16] MEDS: Ipratropium/Albuterol Sulfate 3 ML AMPUL.NEB INHALATION (11:36)
[2022-12-16 11:37] VITALS: PULSE 73; RESP 18
[2022-12-16 12:36] VITALS: BP 151/112
[2022-12-16] MEDS: predniSONE 20 MG Tablet 40 MG PO (12:39)
[2022-12-16] MEDS: Doxycycline 100 MG CAPSULE PO (12:39)
[2022-12-16] MEDS: Albuterol Sulfate 8 gm Inhaler (60 puffs) 2 PUFF INHALATION (12:39)
== END 2022-12-16 12:42 | disposition home or self-care (01) ==
PROVIDERS: Emergency Provider Emergency Medicine; Visit Provider Emergency Medicine
DX: J18.9 Pneumonia, unspecified organism (principal); Z87.891 Personal history of nicotine dependence
CPT/HCPCS: 71045; 87428; 94640; 94664; 99283

== ENCOUNTER 2023-10-13 10:13 | Emergency (ER) | payer SELFPAY ==
[2023-10-13 10:14] VITALS: BP 179/107; PULSE 91; RESP 18; TEMP 36.5; O2SAT 97; BMI 32.9
--- NOTE | 2023-10-13 10:35 | RAD_ITS ---
STUDY: X-RAY CHEST REASON FOR EXAM: Male, 53 years old. Four-day history of cough. TECHNIQUE: PA and lateral views of the chest. COMPARISON: Comparison is made with prior study dated December 16, 2022. FINDINGS: Subtle increased markings in the lingular segment of the left upper lobe. Early infiltrate should be ruled out. There is no demonstrated pleural abnormality. Normal size heart. Normal mediastinum and frances. Normal visualized pulmonary arteries. Normal visualized aortic arch and descending thoracic aorta. Normal visualized thoracic spine. Normal visualized ribs, clavicles, and shoulders. There is no demonstrated abnormality of the visualized soft tissue structures of the upper abdomen. RAD/Chest PA and Lateral IMPRESSION: Subtle increased markings in the lingular segment of the left upper lobe suggestive of early infiltrate. Electronically Signed: González Duenas MD at 11:12 [facility] ,
--- NOTE | 2023-10-13 10:40 | EX.ED.VIS.UR ---
HPI HPI - URI History of Present Illness Chief Complaint: Cold Sx Informant: patient Onset/Context/Timing Onset: Days Context: Gradual Onset Timing: Continuous Current Severity: Mild Maximum Severity: Mild Associated Symptoms Associated Symptoms: Positive for Nasal Congestion and Productive Cough Narrative Narrative: 53-year-old male non-smoker quit 30 years ago. States he had a cough of clear sputum since Wednesday for the last 4 days. No vomiting or diarrhea. Fever as high as 100. No recent exposure. Denies shortness of breath. History of pneumonia in the past. Prior similar symptoms: Yes Recent Illness/Hospitalization: No ROS ROS ED ROS Narrative Cough. Low-grade fever. Review of Systems ROS Unobtainable: Denies due to encephalopathy Constitutional Constitutional ED: Reports fever(s); Denies chills Eyes Eyes: Denies blurry vision ENT ENT ED: Denies ear pain Cardiovascular Cardiovascular: Denies chest pain or palpitations Respiratory/Chest Respiratory/Chest: Reports cough and sputum Gastrointestinal Gastrointestinal: Denies abdominal pain, diarrhea, melena, nausea or vomiting Genitourinary Genitourinary ED: Denies dysuria or hematuria Musculoskeletal Musculoskeletal: Denies arthralgias Integumentary Denies abscess Psychiatric Psychiatric: Denies anxiety Endocrine Endocrinology: Denies cold intolerance Hematologic/Lymphatic Hematologic/Lymphatic: Denies easy bleeding or easy bruising Allergic/Immunologic Allergic/Immunologic ED: Denies mouth swelling, tongue swelling or urticaria PFSH PFS Medical History Back pain Hypertension Home Medications lisinopril 20 mg tablet 20 mg PO BID 10/13/23 [History Last Taken Unknown] Allergy/AdvReac Type Severity Reaction Status Date / Time hydrocodone [From Vicodin] Allergy ANGER Verified 10/13/23 10:13 Social History Smoking Status: Former smoker EXAM Physical Exam Narrative Exam Narrative: 53-year-old male vital signs stable afebrile. Pulse ox 97% on room air no signs hypoxia. H EENT exam unremarkable. Moist weeks membranes. Neck nontender no JVD. No lymphadenopathy. Lungs clear to auscultation bilaterally. Dry cough. Heart regular rhythm rate about 90 no murmur. Abdomen soft nontender. Moving all 4 extremities. Calves are nontender without edema or cords. Otherwise exam unremarkable. Const Vital Signs: 10/13/23 10:14 10/13/23 10:32 Temperature 97.7 F L Temperature Source Temporal Pulse Rate 91 Respiratory Rate 18 Respiratory Effort Normal Non-Labored Respiratory Pattern Normal Blood Pressure 179/107 H Blood Pressure Mean 131 Pulse Ox 97 Oxygen Delivery Method Room Air Positive well nourished and well developed; Negative for obese, cachectic or contractures General Appearance ED: well developed and NAD; Negative for cachectic, contractures, cyanotic, diaphoretic or pallor Nutritional Appearance: Negative for cachectic or obese HEENT Reports moist mucous membranes normocephalic Face and Sinus: Negative for sinus tenderness or maxillary instability Teeth and Gingiva: Negative for caries Throat: posterior oropharynx normal Eyes PERRL and EOMs intact bilaterally General Eye ED: Negative for pale conjunctiva or scleral icterus Neck no lymphadenopathy, supple, no meningeal signs and no JVD General: Negative for anterior neck swelling or lymphadenopathy Resp normal respiratory effort and clear to auscultation bilaterally Effort and Inspection: Negative for retractions Auscultation: Negative for rales, rhonchi or wheezes Cardio S1 normal heart sound, S2 normal heart sound and no murmurs Rate: regular rate Rhythm: regular rhythm GI non-tender, non-distended and no masses Inspection: Negative for abdominal distention Auscultation: normoactive bowel sounds Palpation: soft; Negative for tender or guarding Back/Spine no CVA tenderness and normal ROM General Back: Negative for CVA tenderness Cervical Spine: Negative for cervical spine tenderness Thoracic Spine / Upper Back: Negative for thoracic spinal tenderness Lumbar Spine / Lower Back: Negative for lumbar spinal tenderness Sacrum: Negative for tenderness Extremity normal to inspection and full ROM General Extremety ED: Negative for cyanosis or tenderness General Extremity: Negative for cyanosis Neuro oriented x3, CN's II-XII intact bilaterally and no sensory deficits noted Sensorium / Orientation: alert, oriented to person, oriented to place and oriented to time; Negative for orientation impaired, lethargic or stuporous Motor Exam: strength 5/5 throughout Psych mental status grossly normal Appearance: Negative for other Attitude: No agitated Mood & Affect: Negative for depressed, anxious or tearful Skin General Skin Exam: Negative for jaundice or pallor Lesions: no lesions Rashes: no rashes Trauma: Negative for abrasion or laceration MDM MDM MDM Narrative Medical decision making narrative: 53-year-old male URI symptoms rule out pneumonia versus viral syndrome versus COVID or flu. Chest x-ray and COVID and flu swabs to be obtained. Repeat exam unchanged. Discussed with patient his test results. Treated as COVID URI. Fluids and rest. Tylenol. Follow-up as needed. History & Record Review Discussion w/independent historian: Patient Additional record(s) reviewed:: Prior inpatient record, Prior outpatient record, Prior ED visit and Prior labs Lab Data Attestation: I reviewed the patient's lab results. Lab results narrative: COVID-positive. Influenza negative. Radiography Chest X-Ray - ED: 1 View, Read by ED Physician, Read by Radiologist, Heart, Lungs, Mediastinum, Bony Structures, No Acute Disease and Chronic Changes Diagnostic Testing: Clinical Impression(s) from Imaging Studies Chest X-Ray 10/13/23 10:35 IMPRESSION: Subtle increased markings in the lingular segment of the left upper lobe suggestive of early infiltrate. Electronically Signed: González Duenas MD at 11:12 EST , Chest x-ray, portable, single view, interpreted by myself and the radiologist. Shows no acute abnormality. Discharge Plan Triage Chief Complaint: Cold Sx ED Provider: Hadley Pastrana Dx/Rx/DC Orders Clinical Impression: COVID Instructions: Human Coronaviruses Prescriptions: No Action lisinopril 20 mg tablet 20 mg PO BID Primary Care Provider: [facility] Dawn Torres Referrals: [facility] Dawn Torres [Primary Care Provider] - 1 Week if not improving Activity Restrictions/Additional Instructions: Plenty of fluids and rest. Motrin and Tylenol for fever and chills. Follow-up with your primary care provider as needed. Off of work for the next 4 days. Disposition Disposition: Home, Self Care
[2023-10-13 13:38] VITALS: BP 129/74; PULSE 76; RESP 15; O2SAT 98
== END 2023-10-13 13:38 | disposition home or self-care (01) ==
PROVIDERS: Emergency Provider Emergency Medicine; Visit Provider Emergency Medicine
DX: U07.1 COVID-19 (principal); I10 Essential (primary) hypertension; Z79.899 Other long term (current) drug therapy; Z87.891 Personal history of nicotine dependence
CPT/HCPCS: 71046; 87428; 99282